=== PATIENT | female | born 1950 | race Caucasian/White ===

== ENCOUNTER → 2017-02-14 | Outpatient (CLI) | payer MEDICARE, BC ==
[2013-02-04 03:12] VITALS: BP 168/90
[~2017-02-14] MED LIST: LEVOFLOXACIN500 MG PO; LEVOTHYROXIN0.025 MG PO; MACRODANTIN25 MG PO; PREMARIN0.625 MG; TOPROL XL 25MG25 MG PO
== END ==
LOC: MAMMO 09:13 → RAD 09:15 → MAMMO 09:15
DX: Z12.31 Encounter for screening mammogram for malignant neoplasm of breast (principal)

== ENCOUNTER → 2018-02-27 | Outpatient (CLI) | payer MEDICARE, BC ==
[2013-02-04 03:12] VITALS: BP 168/90
== END ==
LOC: MAMMO 09:46
DX: Z12.31 Encounter for screening mammogram for malignant neoplasm of breast (principal)

== ENCOUNTER → 2019-04-07 | Outpatient (CLI) | payer MEDICARE, BC ==
[2013-02-04 03:12] VITALS: BP 168/90
== END ==
LOC: MAMMO 03-05 09:15
DX: Z12.31 Encounter for screening mammogram for malignant neoplasm of breast (principal)

== ENCOUNTER → 2020-04-07 | Outpatient (CLI) | payer MEDICARE, BC ==
[2013-02-04 03:12] VITALS: BP 168/90
== END ==
LOC: MAMMO 09:58
DX: Z12.31 Encounter for screening mammogram for malignant neoplasm of breast (principal); N63.20 Unspecified lump in the left breast, unspecified quadrant

== ENCOUNTER → 2020-04-15 | Outpatient (CLI) | payer MEDICARE, BC ==
[2013-02-04 03:12] VITALS: BP 168/90
== END ==
LOC: RAD 12:12
DX: N60.12 Diffuse cystic mastopathy of left breast (principal); N63.20 Unspecified lump in the left breast, unspecified quadrant

== ENCOUNTER → 2020-10-28 | Outpatient (CLI) | payer MEDICARE, BC | LOC: MAMMO 12:32 | DX: N63.20 Unspecified lump in the left breast, unspecified quadrant (principal) ==

== ENCOUNTER → 2021-06-01 | Outpatient (CLI) | payer MEDICARE, BC | LOC: MAMMO 14:16 | DX: Z12.31 Encounter for screening mammogram for malignant neoplasm of breast (principal) ==

== ENCOUNTER → 2023-06-07 | Outpatient (CLI) | payer MEDICARE, BC | LOC: MAMMO 10:24 | DX: Z12.31 Encounter for screening mammogram for malignant neoplasm of breast (principal) ==

== ENCOUNTER 2024-02-11 10:00 | Outpatient (RCR) | payer MEDICARE, BC | END 2024-02-12 | LOC: PT | DX: M25.561 Pain in right knee (principal) ==